=== PATIENT | male | born 1970 | race Caucasian/White ===

== ENCOUNTER 2022-11-13 02:55 | Inpatient (IN) | payer BC ==
[~2022-11-13] VITALS: Ht 185.4 cm; Wt 87.3 kg
[2022-11-13] MEDS ORDERED: normal saline 1000ML IV soln IVB ONE (03:05)
[2022-11-13] MEDS ORDERED: ondansetron/PF 4mg/2ml inj IV ONE (03:05)
[2022-11-13] MEDS ORDERED: acetaminophen 325mg tablet PO ONE (03:05)
[2022-11-13] MEDS ORDERED: thiamine 100mg/ml 2ml inj. IV ONE (03:55)
[2022-11-13 04:09] LABS: BASOPHILS % (AUTO) 0.3 % (0-1); EOSINOPHILS # (AUTO) 0.1 X10'3 (0-0.9); EOSINOPHILS % (AUTO) 0.9 % (0-6); HEMATOCRIT 51.2 % (42.0-52.0); HEMOGLOBIN 17.5 g/dl (14.0-17.9); LYMPHOCYTES # (AUTO) 1.1 X10'3 (1.1-4.8); LYMPHOCYTES % (AUTO) 9.7 % (21-51); MEAN CORPUSCULAR HEMOGLOBIN 29.8 PG (27.0-31.0); MEAN CORPUSCULAR HGB CONC 34.2 g/dL (33.0-36.5); MEAN CORPUSCULAR VOLUME 87.1 FL (78-98); MEAN PLATELET VOLUME 8.9 FL (7.4-10.4); MONOCYTES # (AUTO) 0.9 X10'3 (0-0.9); NEUTROPHILS # (AUTO) 8.9 X10'3 (1.8-7.7); NEUTROPHILS % (AUTO) 81.1 % (42-75); PLATELET COUNT 243 X10'3 (140-440); RED BLOOD COUNT 5.88 X10'6 (4.70-6.10); RED CELL DISTRIBUTION WIDTH 13.5 % (11.5-14.5)
[2022-11-13] MEDS ORDERED: morphine 4 MG/ML inj SYRINge IV ONE (04:20)
--- NOTE | 2022-11-13 04:20 | NUR ---
PT REPORTS NO RELIEF WITH TYLENOL GIVEN. PER DR BUCKNER MORPHINE TO BE GIVEN VIA IV.
[2022-11-13 04:46] LABS: ALANINE AMINOTRANSFERASE 20 U/L (12-78); ALBUMIN 4.3 G/DL (3.4-5.0); ALBUMIN/GLOBULIN RATIO 1.3 (1.1-1.5); ALKALINE PHOSPHATASE 80 IU/L (46-116); ANION GAP 13 (8-16); ASPARTATE AMINO TRANSFERASE 21 U/L (10-37); BLOOD UREA NITROGEN 16 MG/DL (7-18); BUN/CREATININE RATIO 13.2 (5.4-32.0); CHLORIDE 100 MMOL/L (99-107); CREATININE 1.21 MG/DL (0.60-1.10); GLUCOSE 130 MG/DL (70-104); LIPASE 139 U/L (73-393); POTASSIUM 3.5 MMOL/L (3.5-5.1); SODIUM 140 MMOL/L (135-145); TOTAL CARBON DIOXIDE 26.9 MMOL/L (24-32); TOTAL PROTEIN 7.5 G/DL (6.4-8.2); eGFR 63 ML/MIN
[2022-11-13] MEDS ORDERED: potassium Cl 20 mEq SR tablet PO PRN ×2 (10:10)
[2022-11-13] MEDS ORDERED: magnesium Cl slow-release 64mg tablet PO PRN (10:10)
[2022-11-13] MEDS ORDERED: magnesium 4gm in 100ml NS 100 ML IV PRN (10:10)
[2022-11-13] MEDS ORDERED: ondansetron/PF 4mg/2ml inj IV PRN (10:10)
[2022-11-13] MEDS ORDERED: acetaminophen 325mg tablet PO PRN (10:10)
[2022-11-13] MEDS ORDERED: potassium Cl 40MEQ/1/2NS 520ml 520 ML IV PRN (10:10)
[2022-11-13] MEDS: normal saline 1000ml 1,000 ML IV SCH ×2 (10:38→20:10)
[2022-11-13 10:42] LABS: MAGNESIUM 1.9 MG/DL (1.5-2.4)
--- NOTE | 2022-11-13 17:29 | NUR ---
Report received from ER. Dr. Valdez want the NG held. It was reported patient has had a bowel movement in the ER prior to arrival up stairs. CTA of the abdomen still ordered.
[2022-11-13 19:00] VITALS: BP 128/67
[2022-11-13] MEDS ORDERED: K and/or MAG REPLACEMENT MC SCH (20:00)
[2022-11-13] MEDS: diatr meglu/diatrizoate 30ml oral sol.-(3 dose) bottle PO SCH (21:00)
[2022-11-13 23:00] VITALS: BP 96/52
--- NOTE | 2022-11-14 05:34 | NUR ---
PT VOIDING NORMALLY IN TOILET AFTER HAVING 2 BM'S ON 11/13/22.
[2022-11-14] MEDS: normal saline 1000ml 1,000 ML IV SCH (06:00)
[2022-11-14 06:17] LABS: BASOPHILS % (AUTO) 0.6 % (0-1); EOSINOPHILS # (AUTO) 0.6 X10'3 (0-0.9); EOSINOPHILS % (AUTO) 8.5 % (0-6); HEMATOCRIT 51.3 % (42.0-52.0); HEMOGLOBIN 16.6 g/dl (14.0-17.9); LYMPHOCYTES # (AUTO) 1.9 X10'3 (1.1-4.8); LYMPHOCYTES % (AUTO) 27.6 % (21-51); MEAN CORPUSCULAR HGB CONC 32.4 g/dL (33.0-36.5); MEAN CORPUSCULAR VOLUME 89.5 FL (78-98); MEAN PLATELET VOLUME 9.2 FL (7.4-10.4); MONOCYTES # (AUTO) 0.8 X10'3 (0-0.9); MONOCYTES % (AUTO) 11.9 % (2-12); NEUTROPHILS # (AUTO) 3.5 X10'3 (1.8-7.7); NEUTROPHILS % (AUTO) 51.4 % (42-75); PLATELET COUNT 214 X10'3 (140-440); RED BLOOD COUNT 5.73 X10'6 (4.70-6.10); RED CELL DISTRIBUTION WIDTH 13.9 % (11.5-14.5); WHITE BLOOD COUNT 6.8 X10'3 (4.5-11.0)
[2022-11-14 06:22] LABS: ALBUMIN 3.2 G/DL (3.4-5.0); ANION GAP 9 (8-16); BLOOD UREA NITROGEN 10 MG/DL (7-18); BUN/CREATININE RATIO 10.1 (5.4-32.0); CALCIUM 8.4 MG/DL (8.5-10.1); CHLORIDE 104 MMOL/L (99-107); CREATININE 0.99 MG/DL (0.60-1.10); GLUCOSE 90 MG/DL (70-104); POTASSIUM 3.9 MMOL/L (3.5-5.1); SODIUM 141 MMOL/L (135-145); TOTAL CARBON DIOXIDE 27.6 MMOL/L (24-32); eGFR 79 ML/MIN
--- NOTE | 2022-11-14 06:30 | NUR ---
Problems reprioritized. Patient report given, questions answered & plan of care reviewed with Brandie. Addendum: 11/14/22 at 0630 by Willie Holcomb RN Amended: Links added.
--- NOTE | 2022-11-14 06:38 | NUR ---
Patient in room [facility]. I have received report from conchis CORTES and had the opportunity to ask questions and assume patient care.
[2022-11-14 07:00] VITALS: BP 105/58
[2022-11-14] MEDS: diatr meglu/diatrizoate 30ml oral sol.-(3 dose) bottle PO SCH ×2 (07:26→10:11)
[2022-11-14 10:00] VITALS: BP 103/64
[2022-11-14] MEDS ORDERED: iohexol 300mg/ml 100ml inj. ONE (10:17)
[2022-11-14] MEDS ORDERED: levoFLOXACIN-Levaquin 500mg/D5 100 ML IV SCH (11:20)
[2022-11-14] MEDS ORDERED: LEVO-65 PO (12:36)
--- NOTE | 2022-11-14 13:03 | NUR ---
patient went for CT 0f abdomen results viewed . seen by Dr Kaur and Dr Arias is for discharge. All Dc instructions given to patient . patient awaiting ride.
--- NOTE | 2022-11-14 14:11 | NUR ---
patient DC home via private car in stable condition
== END 2022-11-14 13:22 | disposition home or self-care (01) | DRG 389 ==
LOC: ER 02:56 → ED HOLD 10:11 → EDBEDREQ 15:14 → SUR 3N 16:58
PROVIDERS: ADMIT Internal Medicine; ATTEND Internal Medicine
PROC: BW211ZZ Computerized Tomography (CT Scan) of Abdomen and Pelvis using Low Osmolar Contrast (ICD-10-PCS; principal; 2022-11-14)
DX: K56.609 Unspecified intestinal obstruction, unspecified as to partial versus complete obstruction (principal); K57.32 Diverticulitis of large intestine without perforation or abscess without bleeding; K59.00 Constipation, unspecified; Z20.822 Contact with and (suspected) exposure to COVID-19; Z28.310 Unvaccinated for COVID-19
CPT/HCPCS: 36415; 74176; 74177; 80048; 80053; 83690; 83735; 84484; 85025; 87811; 93005; 96374; 96375; 99285; G0378; J2270; J2405; J3490; J7030; Q9963; Q9967